=== PATIENT | female | born 1970 | race Hispanic/Latino ===

== ENCOUNTER 2018-11-21 10:46 | Outpatient (CLI) | payer BC ==
--- NOTE | 2018-11-21 12:47 | MMO ---
Bilateral MAMMO Bilat Screen [facility]. CLINICAL HISTORY: Patient is 48 years old and is seen for screening. The patient has no family history of breast cancer. The patient has no personal history of cancer. VIEWS: The views performed were: bilateral craniocaudal with tomosynthesis and bilateral mediolateral oblique with tomosynthesis. FILMS COMPARED: The present examination has been compared to prior imaging studies performed at [facility] on 12/15/2008, 04/03/2013 and 05/01/2013. MAMMOGRAM FINDINGS: There are scattered fibroglandular densities. There are no suspicious masses, suspicious calcifications, or new areas of architectural distortion. IMPRESSION: THERE IS NO MAMMOGRAPHIC EVIDENCE OF MALIGNANCY. A ROUTINE FOLLOW-UP MAMMOGRAM IN 1 YEAR IS RECOMMENDED. THE RESULTS OF THIS EXAM WERE SENT TO THE PATIENT. ACR BI-RADS Category 1 - Negative MAMMOGRAPHY NOTE: 1. A negative mammogram report should not delay a biopsy if a dominant of clinically suspicious mass is present. 2. Approximately 10% to 15% of breast cancers are not detected by mammography. 3. Adenosis and dense breasts may obscure an underlying neoplasm. Reported by: ARNOLDO NEVILLE MD Electonically Signed: [id number]
== END 2018-11-21 10:47 | disposition home or self-care (01) ==
LOC: BICMAMMO 10:46
PROVIDERS: ATTEND Family Medicine
DX: Z12.31 Encounter for screening mammogram for malignant neoplasm of breast (principal)
CPT/HCPCS: 77063; 77067

== ENCOUNTER 2020-02-10 10:24 | Outpatient (CLI) | payer BC ==
--- NOTE | 2020-02-10 11:31 | MMO ---
Bilateral MAMMO Bilat Screen [facility]. CLINICAL HISTORY: Patient is 49 years old and is seen for screening. The patient has the following family history of breast cancer: cousin female, (MATERNAL). The patient has no personal history of cancer. VIEWS: The views performed were: bilateral craniocaudal with tomosynthesis and bilateral mediolateral oblique with tomosynthesis. FILMS COMPARED: The present examination has been compared to prior imaging studies performed at [facility] on 11/21/2018, and at [facility] on 12/15/2008, 04/03/2013 and 05/01/2013. This study has been interpreted with the assistance of computer-aided detection. MAMMOGRAM FINDINGS: There are scattered fibroglandular densities. There are no suspicious masses, suspicious calcifications, or new areas of architectural distortion. IMPRESSION: THERE IS NO MAMMOGRAPHIC EVIDENCE OF MALIGNANCY. A ROUTINE FOLLOW-UP MAMMOGRAM IN 1 YEAR IS RECOMMENDED. THE RESULTS OF THIS EXAM WERE SENT TO THE PATIENT. ACR BI-RADS Category 1 - Negative MAMMOGRAPHY NOTE: 1. A negative mammogram report should not delay a biopsy if a dominant of clinically suspicious mass is present. 2. Approximately 10% to 15% of breast cancers are not detected by mammography. 3. Adenosis and dense breasts may obscure an underlying neoplasm. Reported by: RUTHANN GOLDSTEIN MD Electonically Signed: [id number]
--- NOTE | 2020-02-10 13:04 | ULT ---
SOFT TISSUE ULTRASOUND OF THE ABDOMINAL WALL: Date: 02/10/2020 INDICATION: History of left flank pain and history of abdominal wall hernia. TECHNIQUE: Willett scale ultrasound and color Doppler ultrasound images were obtained of the region of pain and pal pable abnormality. COMPARISON: Comparison made with prior CT of the abdomen and pelvis without contrast performed at [facility]. FINDINGS: No appreciable hernia is evident on the provided ultrasound images; however, the left upper quadrant anterior abdominal wall hernia containing omental fat is well depicted on the comparison CT examinati on with the hernia mouth measuring 1.1 cm. IMPRESSION: The hernia previously demonstrated within the left upper quadrant of the anterior abdominal wall of t he abdomen is not well seen on the current ultrasound examination, but was well depicted on the kamaljit rison CT dated 01/25/2020 with a hernia mouth measuring 1.1 cm. POS: AH
== END 2020-02-10 10:25 | disposition home or self-care (01) ==
LOC: BICMAMMO 10:24
PROVIDERS: ATTEND Family Medicine
DX: Z12.31 Encounter for screening mammogram for malignant neoplasm of breast (principal); R19.02 Left upper quadrant abdominal swelling, mass and lump; Z80.3 Family history of malignant neoplasm of breast
CPT/HCPCS: 76705; 77063; 77067

== ENCOUNTER 2020-03-14 07:15 | Outpatient (CLI) | payer BC ==
[2020-03-14 16:56] LABS: Anion Gap 14 mmol/L (10-20); BUN (Urea Nitrogen) 12 mg/dL (7.0-18.7); Calc. Creatinine Clearance 0 mL/min (70-130); Calcium 8.6 mg/dL (7.8-10.44); Carbon Dioxide 20 mmol/L (22-29); Estimated GFR-MDRD 85; Glucose 127 mg/dL (70-105)
[2020-03-14 17:00] LABS: #Basophils 0.1 10x3/uL (0.0-0.2); #Eosinphils 0.1 10x3/uL (0.0-0.5); #Monocytes 0.7 10x3/uL (0.0-1.1); #Neutrophils 5.2 10x3/uL (1.5-8.4); %Basophils 0.6 % (0.0-2.0); %Eosinophils 1.7 % (0.0-6.0); %Lymphocytes 25.5 % (18.0-47.0); %Monocytes 8.1 % (0.0-10.0); %Neutrophils 63.7 % (40.0-75.0); Hemoglobin 12.9 g/dL (12.0-16.0); Mean Corpuscular HGB CONC 32.7 G/DL (32.0-36.0); Mean Corpuscular Hemoglobin 29.3 PG (27.0-33.0); Mean Corpuscular Volume 89.6 fl (80.0-100.0); Mean Platelet Volume 8.5 fl (7.4-10.4); Platelet Count 349 10x3/uL (130-400); RBC Distribution Width 12.6 % (11.5-14.5); Red Blood Cell (RBC) Count 4.41 10x6/uL (3.90-5.20); White Blood Cell (WBC) Count 8.2 10x3/uL (4.5-11.0)
[2020-03-14 17:03] LABS: Chloride 105 mmol/L (98-107); Potassium 3.9 mmol/L (3.5-5.1); Sodium 135 mmol/L (136-145)
[2020-03-15 03:58] LABS: SARS-CoV-2 MS2 Positive; SARS-CoV-2 N Gene Negative; SARS-CoV-2 S Gene Negative; SARS-CoV-2 by NAA Not Detected (NotDetected); SARS-CoV-2 orf1ab Negative
== END 2020-03-14 07:16 | disposition home or self-care (01) ==
LOC: LABBT 07:15
PROVIDERS: ATTEND Specialist
DX: Z01.812 Encounter for preprocedural laboratory examination (principal); Z20.828 Contact with and (suspected) exposure to other viral communicable diseases; K45.0 Other specified abdominal hernia with obstruction, without gangrene
CPT/HCPCS: 80048; 85025; 87635; U0003

== ENCOUNTER 2020-03-17 05:52 | Day surgery (SDC) | payer BC ==
[2020-03-15 13:13] VITALS: BMI 33.1
[2020-03-17] MEDS ORDERED: Ketorolac Tromethamine 30 MG/ML VIAL ONE (06:24)
[2020-03-17] MEDS ORDERED: Acetaminophen 500 MG TAB ONE (06:24)
[2020-03-17] MEDS ORDERED: Fentanyl 100 MCG/2 ML VIAL ONE ×2 (06:32→09:56)
[2020-03-17] MEDS ORDERED: HYDROmorphone 0.5 MG/0.5 ML SYRINGE ONE (06:32)
[2020-03-17] MEDS ORDERED: Bupivacaine 0.25% HCL 30 ML VIAL ONE (06:48)
[2020-03-17] MEDS ORDERED: Lidocaine 1% w/Epinephrine 1:100K 20 ML VIAL ONE (06:48)
[2020-03-17] MEDS ORDERED: Midazolam HCl 2 mg/2 ml Vial ONE (07:18)
[2020-03-17] MEDS ORDERED: Lidocaine 1% PF 5 ML VIAL ONE (11:24)
[2020-03-17] MEDS ORDERED: Dexamethasone 20 MG/5 ML VIAL ONE (11:24)
[2020-03-17] MEDS ORDERED: Rocuronium Bromide 10 MG/ML (10ML VIAL) ONE (11:24)
[2020-03-17] MEDS ORDERED: PROPOFOL 200 MG/20 ML VIAL ONE (11:24)
[2020-03-17] MEDS ORDERED: Ondansetron PF 4 MG/2 ML Vial ONE (11:24)
[2020-03-17] MEDS ORDERED: Glycopyrrolate 0.2 MG/ML 5 ML SYRINGE ONE (11:24)
[2020-03-17] MEDS ORDERED: PHENYLEPHRINE-NS 100 MCG/ML 10 ML SYRINGE ONE (11:24)
[2020-03-17] MEDS ORDERED: HYDROcodone/Acetaminophen 5/325 mg Tablet ONE (11:55)
--- NOTE | 2020-03-18 12:48 | OP ---
DATE OF PROCEDURE: 03/17/2020 PREOPERATIVE DIAGNOSES: Umbilical hernia, left upper abdominal incisional hernia. POSTOPERATIVE DIAGNOSES: Umbilical hernia, left upper abdominal incisional hernia. PROCEDURES PERFORMED: Robotic-assisted repair of ventral incisional hernia and umbilical hernia. ANESTHESIA: General endotracheal. INDICATIONS: The patient is a 49-year-old female. She had undergone surgery at another facility and she has developed an incisional hernia at one of her port sites. She has a painful mass at this area. This is documented on CT scan. She appears to have a smaller umbilical hernia that was minimally symptomatic. She is taken to the operating room to address these two issues. DESCRIPTION OF OPERATION: Informed consent was obtained. The patient was taken to the operating room, where general endotracheal anesthesia was obtained with the patient in supine position. Abdomen was prepped with ChloraPrep and draped in sterile fashion. Local anesthetic was infiltrated using a mixture of 1% lidocaine with epinephrine and 0.25% Marcaine. A 5 mm lateral right abdominal incision was created through which Veress needle was passed into the peritoneal cavity, and pneumoperitoneum was established using carbon dioxide up to pressure of 15 mmHg. An 11 mm balloon-tipped trocar port was passed through this incision, and robotic camera was passed to this port. Under direct vision, two additional 8 mm robotic ports were placed, one in the right upper abdomen and one in the right lower abdomen. The robot was docked to the 3 ports and to the camera, and the operation was continued from the robotic console. Attention was turned first to the hernia in the left upper abdomen. There was a fatty tissue incarcerated within this. I carefully dissected the borders of the hernia and reduced all omentum out of the hernia defect. When the contents were completely removed, the surrounding preperitoneal fatty tissue was dissected allowing a good rim of normal muscular tissue. The defect appeared to be about 3 to 3.5 cm in diameter. I closed this defect in a vertical fashion with a running suture of #1 nonabsorbable Stratafix with the pressure is reduced in the abdomen. There was excellent approximation of the tissues and closure of the defect. An attempt was made to decrease the space by incorporating some of the hernia sac within the closure. I then obtained an 8 cm Ventralex mesh patch and trimmed the tails from this and passed this into the abdominal cavity. I tacked this in place using the needle from the first suture directly over the repair defect. I then secured this circumferentially with a running suture of 2-0 Stratafix. This provided excellent approximation and coverage of the mesh over the defect. Attention was turned to the umbilicus. There appeared to be preperitoneal fatty tissue herniated through the hernia defect at the umbilicus. This fatty tissue was all reduced. There was a very small defect that appeared to be a centimeter at most. After reducing the material and dissecting the fascial edges, I repaired this with a 0 Stratafix using nonabsorbable suture. The defect was well repaired in a to and fro fashion. I decided not to place mesh over this defect. The fascia at the large port site was closed with 0 Vicryl suture using a GraNee needle. All ports and instruments were removed under direct vision. Pneumoperitoneum was carefully evacuated. Additional local anesthetic was infiltrated at each port site. Skin edges were approximated with 4-0 Monocryl subcuticular suture. Dermabond was placed externally. There were no complications. The patient tolerated the procedure well and was taken to recovery room in stable condition. Job ID: [id number]
== END 2020-03-17 12:30 | disposition home or self-care (01) ==
LOC: SDC 05:52
PROVIDERS: ATTEND Specialist
PROC: 0WUF4JZ Supplement Abdominal Wall with Synthetic Substitute, Percutaneous Endoscopic Approach (ICD-10-PCS; principal; 2020-03-17)
PROC: 0WQF4ZZ Repair Abdominal Wall, Percutaneous Endoscopic Approach (ICD-10-PCS; principal; 2020-03-17)
DX: K43.0 Incisional hernia with obstruction, without gangrene (principal); K42.0 Umbilical hernia with obstruction, without gangrene; Z79.899 Other long term (current) drug therapy; Z91.02 Food additives allergy status; Z91.048 Other nonmedicinal substance allergy status; Z98.84 Bariatric surgery status
CPT/HCPCS: C1781; J0690; J1100; J1170; J1885; J2250; J2405; J2704; J3010; S0020

== ENCOUNTER 2021-03-24 09:57 | Outpatient (CLI) | payer BC | END 2021-03-24 09:58 | disposition home or self-care (01) | LOC: BICMAMMO 09:57 | PROVIDERS: ATTEND Family Medicine | DX: Z12.31 Encounter for screening mammogram for malignant neoplasm of breast (principal); Z80.3 Family history of malignant neoplasm of breast | CPT/HCPCS: 77063; 77067 ==

== ENCOUNTER 2022-01-05 11:08 | Outpatient (CLI) | payer BC ==
[~2022-01-05 11:08] MED LIST: Iopamidol-370 76% 500 ML 1 ML ONE
== END 2022-01-05 11:09 | disposition home or self-care (01) ==
LOC: BICCT 11:08
PROVIDERS: ATTEND Family Medicine
DX: R10.13 Epigastric pain (principal); K44.9 Diaphragmatic hernia without obstruction or gangrene; Z98.890 Other specified postprocedural states
CPT/HCPCS: 74177; Q9967

== ENCOUNTER 2023-05-03 10:40 | Outpatient (CLI) | payer BC | END 2023-05-03 10:41 | disposition home or self-care (01) | LOC: BICMAMMO 10:40 | PROVIDERS: ATTEND Family Medicine | DX: Z12.31 Encounter for screening mammogram for malignant neoplasm of breast (principal); Z80.3 Family history of malignant neoplasm of breast | CPT/HCPCS: 77063; 77067 ==